=== PATIENT | male | born 1995 ===

== ENCOUNTER 2021-03-18 13:07 | Inpatient (IN) | payer MEDICAID ==
[~2021-03-18] VITALS: Ht 165.1 cm; Wt 70.4 kg
[2021-03-18] MEDS ORDERED: ACETAMINOPHEN 325 MG TABLET PO PRN (15:30)
[2021-03-18] MEDS ORDERED: DOCUSATE 100 MG CAPSULE PO PRN (15:30)
[2021-03-18] MEDS ORDERED: POLYETHYLENE GLYCOL 17 GM PACKET PO PRN (15:30)
[2021-03-18 16:07] VITALS: BP 124/74
[2021-03-18] MEDS: NICOTINE 14MG/24 HR PATCH.TD24 TD SCH (17:25)
[2021-03-18 19:22] VITALS: BP 104/67
[2021-03-19 06:05] LABS: BASOPHILS % (AUTO) 1 % (0-1); EOSINOPHILS % (AUTO) 5 % (1-7); LYMPHOCYTES % (AUTO) 29 % (22-44); MEAN CORPUSCULAR HGB CONC 33.8 g/dL (33.2-36.2); MEAN PLATELET VOLUME 8.4 fL (7.4-10.4); MONOCYTES % (AUTO) 10 % (2-9); NEUTROPHILS % (AUTO) 56 % (42-75); PLATELET COUNT 187 x10^3/uL (130-400); RED BLOOD COUNT 4.83 x10^6/uL (4.38-5.82); RED CELL DISTRIBUTION WIDTH 13.7 % (9.4-14.8)
[2021-03-19 06:46] LABS: ALANINE AMINOTRANSFERASE 17 U/L (12-78); ALBUMIN 3.2 g/dL (3.4-5.0); ALKALINE PHOSPHATASE 51 U/L (45-117); BILIRUBIN,TOTAL 2.3 mg/dL (0.2-1.0); CALCIUM 8.7 mg/dL (8.5-10.1); CHOL/HDL RATIO 2.7; CHOLESTEROL, TOTAL 128 mg/dL (140-239); CREATININE 0.94 mg/dL (0.7-1.3); FREE T4 (FREE THYROXINE) 0.98 ng/dL (0.76-1.46); HDL CHOL % 37 % (26-37); HDL CHOLESTEROL (DIRECT) 47 mg/dL (40-60); LDL CHOLESTEROL,CALCULATED 59 mg/dL (54-169); LDL/HDL RATIO 1.3 (0.5-3.0); TOTAL PROTEIN 5.9 g/dL (6.4-8.2); TRIGLYCERIDES 111 mg/dL (50-200); VLDL CHOLESTEROL 22 mg/dL (0-25)
[2021-03-19 06:53] LABS: CHLORIDE 109 mmol/L (98-107)
[2021-03-19 06:54] LABS: ANION GAP 3 mmol/L (5-15)
[2021-03-19 07:30] VITALS: BP 106/69
[2021-03-19] MEDS: NICOTINE 14MG/24 HR PATCH.TD24 TD SCH (17:10)
[2021-03-19 19:37] VITALS: BP 110/70
[2021-03-20 00:21] LABS: MICROSCOPIC NOT IND
[2021-03-20 07:38] VITALS: BP 108/68
[2021-03-20] MEDS: NICOTINE 14MG/24 HR PATCH.TD24 TD SCH (09:06)
[2021-03-20] MEDS ORDERED: COVID-19 VAC,AD26(JANSSEN)/PF 0.5ML IM-VACC ONE (17:30)
[2021-03-20 19:27] VITALS: BP 101/77
[2021-03-21 07:30] VITALS: BP 109/68
[2021-03-21] MEDS: NICOTINE 14MG/24 HR PATCH.TD24 TD SCH (08:24)
== END 2021-03-21 15:20 | disposition home or self-care (01) | DRG 885 ==
LOC: 3E 14:43
PROVIDERS: ADMIT Psychiatry & Neurology Psychosomatic Medicine; ATTEND Psychiatry & Neurology Psychosomatic Medicine
DX: F32.2 Major depressive disorder, single episode, severe without psychotic features (principal); F10.10 Alcohol abuse, uncomplicated; F17.200 Nicotine dependence, unspecified, uncomplicated; F12.90 Cannabis use, unspecified, uncomplicated; Z72.89 Other problems related to lifestyle
CPT/HCPCS: 36415; 80053; 80061; 81003; 82607; 84439; 84443; 85025; 91303; 93005